=== PATIENT | female | born 1985 | race Caucasian/White ===

== ENCOUNTER 2017-07-08 19:00 | Emergency (ER) | payer BC ==
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
[2017-07-08] MEDS ORDERED: Acetaminophen/HYDROcodone 325-5 MG Tab PO ONE (20:51)
--- NOTE | 2017-07-10 06:45 | CR ---
Chest: Two views of the chest were obtained. Comparison: No prior study. Heart size and mediastinum are normal. Lungs are clear. Bony structures are unremarkable. Impression: 1. Nothing acute is appreciated on two-view chest x-ray. Diagnostic code #1
--- NOTE | 2017-07-10 06:45 | CT ---
Head CT Technique: Multiple axial sections through the brain were obtained. Intravenous contrast was not utilized. Findings: Ventricles along with basal cisterns and sulci over the convexities are within normal limits for the patient's age. No abnormal parenchymal densities are seen. No evidence of intracranial hemorrhage. No midline shift or mass effect is seen. Bone window settings were reviewed showing minimal mucosal thickening within the sphenoid and ethmoid sinuses. No acute calvarial abnormality is appreciated. Impression: 1. Mild areas of mucosal thickening within the sphenoid and ethmoid sinuses. 2. No acute intracranial abnormality is identified. Diagnostic code #2 I agree with preliminary report issued by [facility] ([facility] preliminary report dictated on 07/08/17, 10:26 PM Central Time)
== END 2017-07-08 22:10 | disposition home or self-care (01) ==
LOC: EEVIPCON 19:00 → SUPCPDRO 19:00 → JD.ED 19:00
DX: S00.03XA Contusion of scalp, initial encounter (principal); S20.01XA Contusion of right breast, initial encounter; S00.83XA Contusion of other part of head, initial encounter; S05.11XA Contusion of eyeball and orbital tissues, right eye, initial encounter; S40.012A Contusion of left shoulder, initial encounter; S40.011A Contusion of right shoulder, initial encounter; S30.810A Abrasion of lower back and pelvis, initial encounter; S90.31XA Contusion of right foot, initial encounter; S60.221A Contusion of right hand, initial encounter; S60.222A Contusion of left hand, initial encounter; Y04.8XXA Assault by other bodily force, initial encounter; F17.210 Nicotine dependence, cigarettes, uncomplicated
CPT/HCPCS: 70450; 71020; 99284; A9270

== ENCOUNTER 2017-07-12 19:13 | Inpatient (IN) | payer BC ==
[2017-07-12] MEDS ORDERED: Sodium Chloride 0.9% 10 ML Syringe FLUSH PRN (19:32)
[2017-07-12] MEDS: Sodium Chloride 0.9% 1,000 ML IV SCH (20:11)
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
[2017-07-12 20:47] LABS: ACETAMINOPHEN 0 ug/mL (10-30)
[2017-07-12] MEDS ORDERED: NS + KCl 20mEq/L 1,000 ML IV SCH (21:15)
[2017-07-12] MEDS ORDERED: Bisacodyl 5 MG Tab PO PRN (23:07)
[2017-07-12] MEDS ORDERED: Polyethylene Glycol 3350 Powder 17 GM Packet PO PRN (23:07)
[2017-07-12] MEDS ORDERED: oxyCODONE 5 MG Tab PO PRN (23:07)
[2017-07-12] MEDS ORDERED: Ibuprofen 600 MG Tab PO PRN (23:07)
[2017-07-12] MEDS ORDERED: Pantoprazole 40 MG Vial IVPUSH ONE (23:07)
[2017-07-12] MEDS ORDERED: Docusate Sodium 100 MG Cap PO PRN (23:07)
[2017-07-12] MEDS ORDERED: HYDROmorphone 0.5 MG/0.5 ML Syringe IVPUSH PRN (23:07)
[2017-07-12] MEDS ORDERED: Albuterol/Ipratropium 3.0-0.5 MG/3 ML Neb Soln NEB PRN (23:07)
[2017-07-12] MEDS ORDERED: Promethazine 12.5 MG in Sodium Chloride 0.9% 50 ML IV PRN (23:07)
[2017-07-12] MEDS ORDERED: Haloperidol Lactate 5 MG/ML SDV IM PRN (23:10)
[2017-07-12] MEDS ORDERED: Thiamine 100 MG in Sodium Chloride 0.9% 50 ML IV ONE (23:10)
[2017-07-12] MEDS ORDERED: cloNIDine 0.1 MG Tab PO PRN (23:10)
[2017-07-12] MEDS ORDERED: Folic Acid 50 MG/10 ML MDV SUBCUT ONE (23:10)
[2017-07-12] MEDS ORDERED: Multivitamins,Therapeutic Tab PO ONE (23:10)
[2017-07-12] MEDS ORDERED: LORazepam 2 MG/ML MDV IVPUSH PRN (23:14)
[2017-07-12] MEDS ORDERED: hydrALAZINE 20 MG/ML SDV IVPUSH PRN (23:14)
[2017-07-12] MEDS ORDERED: Metoprolol Tartrate 5 MG/5 ML SDV IVPUSH PRN (23:14)
[2017-07-12] MEDS ORDERED: Potassium Chloride 10 MEQ in Premix Bag 1 BAG IV SCH (23:15)
[2017-07-12] MEDS ORDERED: QUEtiapine 25 MG Tab PO ONE (23:15)
[2017-07-12] MEDS ORDERED: Topiramate 25 MG Tab PO STA (23:16)
[2017-07-12] MEDS ORDERED: diphenhydrAMINE 50 MG/ML SDV IVPUSH ONE (23:17)
[2017-07-13] MEDS ORDERED: Potassium Chloride 20 MEQ Tab.ER PO ONE (00:13)
[2017-07-13] MEDS ORDERED: QUEtiapine 25 MG Tab PO ONE (00:26)
[2017-07-13] MEDS: Ondansetron 4 MG/2 ML SDV IV PRN ×3 (00:57→17:37)
[2017-07-13] MEDS: chlordiazePOXIDE 25 MG Cap PO PRN (01:47)
[2017-07-13] MEDS: LORazepam 2 MG/ML MDV IVPUSH PRN ×5 (01:47→17:26)
[2017-07-13] MEDS: Sodium Chloride 0.9% 1,000 ML IV SCH ×3 (05:50→22:04)
[2017-07-13] MEDS ORDERED: Pneumococcal Polyvalent-23 Vaccine 0.5 ML SDV IM ONE (06:57)
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
[2017-07-13] MEDS: Famotidine 20 MG Tab PO SCH ×2 (08:25→20:31)
[2017-07-13] MEDS: Thiamine 100 MG Tab PO SCH (08:25)
[2017-07-13] MEDS: Folic Acid 1 MG Tab PO SCH (08:26)
[2017-07-13] MEDS: Citalopram 20 MG Tab PO SCH (08:27)
[2017-07-13] MEDS: Nicotine 21 MG/24 Hr Patch TRDERM SCH (08:29)
[2017-07-13] MEDS ORDERED: Topiramate 25 MG Tab PO SCH ×2 (09:00→21:00)
[2017-07-13] MEDS: Magnesium Oxide 400 MG Tab PO SCH ×2 (09:54→13:23)
[2017-07-13] MEDS ORDERED: diphenhydrAMINE 50 MG/ML SDV IVPUSH SCH (21:00)
[2017-07-13] MEDS ORDERED: QUEtiapine 25 MG Tab PO SCH ×2 (21:00)
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
[2017-07-14] MEDS: Sodium Chloride 0.9% 1,000 ML IV SCH (05:38)
[2017-07-14] MEDS: Ondansetron 4 MG/2 ML SDV IV PRN (05:53)
[2017-07-14] MEDS: LORazepam 2 MG/ML MDV IVPUSH PRN ×2 (06:05→10:44)
[2017-07-14] MEDS: Famotidine 20 MG Tab PO SCH (08:33)
[2017-07-14] MEDS: chlordiazePOXIDE 25 MG Cap PO PRN (08:33)
[2017-07-14] MEDS: Folic Acid 1 MG Tab PO SCH (08:33)
[2017-07-14] MEDS: Thiamine 100 MG Tab PO SCH (08:33)
[2017-07-14] MEDS: Nicotine 21 MG/24 Hr Patch TRDERM SCH ×2 (08:34→11:33)
[2017-07-14] MEDS: Citalopram 20 MG Tab PO SCH (08:34)
[2017-07-14] MEDS ORDERED: Topiramate 25 MG Tab PO SCH (09:00)
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
[2017-07-14] MEDS ORDERED: LORazepam 2 MG/ML MDV IVPUSH ONE (11:53)
== END 2017-07-14 14:40 | DRG 812 ==
LOC: JD.ED 19:13 → EEVIPCON 19:13 → JD.ICU 22:46
PROVIDERS: ADMIT Internal Medicine; ATTEND Internal Medicine
DX: T43.222A Poisoning by selective serotonin reuptake inhibitors, intentional self-harm, initial encounter (principal); F10.229 Alcohol dependence with intoxication, unspecified; F10.129 Alcohol abuse with intoxication, unspecified; Y90.1 Blood alcohol level of 20-39 mg/100 ml; S61.512A Laceration without foreign body of left wrist, initial encounter; X83.8XXA Intentional self-harm by other specified means, initial encounter; E87.6 Hypokalemia; F33.3 Major depressive disorder, recurrent, severe with psychotic symptoms; F41.9 Anxiety disorder, unspecified; Z79.899 Other long term (current) drug therapy
CPT/HCPCS: 36415; 80048; 80053; 80306; 83735; 84703; 85025; 93005; 96360; 96361; 99223; 99231; 99239; 99284; 99285-25; A9270-GY; G0480; J1200; J2060; J2405; J3411; J7040; J7050